=== PATIENT | male | born 1995 | race Caucasian/White ===

== ENCOUNTER → 2018-10-29 | Day surgery (SDC) | payer OTHER ==
[~2018-10-29] VITALS: Ht 172.7 cm; Wt 80.0 kg
[~2018-10-29] MED LIST: ACETAMINOPHEN 1000 MG/ISO-OSM 100 ML IV ONE; AMPICILLIN SODIUM 1 GM/VIAL ONE; ATOR10TA84 PO; CLON.2 PO; DEXAMETHASONE SOD PHOS 4 MG/ML VIAL IVP ONE; DOCU250C90 PO; GLYCOPYRROLATE 0.2 MG/ML VIAL IM ONE; KETAMINE HCL 50 MG/ML 10 ML VIAL IVP ONE; KETOROLAC TROMETHAMINE 60 MG/2 ML VIAL IM ONE; LACO100 PO; LIDOCAINE/PF 2% 5 ML VIAL INJ ONE; METF-960 PO; METO25 PO; MIDAZOLAM HCL 2 MG/2 ML VIAL IVP ONE; MIDAZOLAM HCL 5 MG/ML VIAL ONE; OLAN10TA3 PO; ONDANSETRON HCL 4 MG/2 ML VIAL IVP ONE; OXYMETAZOLINE HCL 0.05% 15 ML NASAL SPRAY NASAL ONE; PROPOFOL 1% 20 ML VIAL IVP ONE; RINGERS SOLUTION,LACTATED 1,000 ML IV ONE; SUCCINYLCHOLINE CHLORIDE 20 MG/ML 10 ML VIAL IVP ONE; TEMA15CA PO
[2018-10-29 08:02] LABS: BASOPHILS % (AUTO) 0.5 % (0.0-2.0); EOSINOPHILS % (AUTO) 0.2 % (1.0-6.0); HEMATOCRIT 42.9 % (41-53); HEMOGLOBIN 14.2 g/dL (13.5-17.5); LYMPHOCYTES # (AUTO) 2.6 K/uL (1.0-4.8); LYMPHOCYTES % (AUTO) 35.7 % (22.0-44.0); MEAN CORPUSCULAR HEMOGLOBIN 26.7 pg (26.0-34.0); MEAN CORPUSCULAR HGB CONC 33.2 G/dL (31.0-37.0); MEAN CORPUSCULAR VOLUME 80 fL (80-100); MONOCYTES # (AUTO) 0.5 K/uL (0.1-1.0); MONOCYTES % (AUTO) 6.8 % (2.0-9.0); NEUTROPHILS # (AUTO) 4.1 K/uL (1.8-7.7); NEUTROPHILS % (AUTO) 56.8 % (40.0-70.0); PLATELET COUNT (AUTO) 200 K/uL (150-450); RED BLOOD CELL COUNT(AUTO) 5.34 MIL/uL (4.50-5.90); RED CELL DISTRIBUTION WIDTH 14.4 % (11.5-14.5)
[2018-10-29 08:10] LABS: INR 1.1 (0.9-1.1); PROTHROMBIN TIME 11.4 SEC (9.4-11.6)
[2018-10-29 08:12] LABS: ANION GAP 10 mmol/L (8-16); CALCIUM, TOTAL 9.2 mg/dL (8.8-10.5); CARBON DIOXIDE 30 mmol/L (22-29); CHLORIDE 102 mmol/L (98-107); CREATININE 0.83 mg/dL (0.60-1.30); GLOMERULAR FILTR. RATE CALC > 60 mL/min (>60); GLUCOSE,RANDOM 293 mg/dL (70-110); POTASSIUM 3.8 mmol/L (3.5-5.1); SODIUM SERUM 142 mmol/L (136-145); UREA NITROGEN, BLOOD 11 mg/dL (7-18)
[2018-10-29 08:19] LABS: ALANINE AMINOTRANSFERASE 56 U/L (12-78); ALBUMIN 3.6 g/dL (3.4-5.0); ALKALINE PHOSPHATASE 75 U/L (46-116); ASPARTATE AMINOTRANSFERASE 35 U/L (15-37); BILIRUBIN,TOTAL 0.3 mg/dL (0.1-1.0); TOTAL PROTEIN, SERUM 7.8 g/dL (6.4-8.2)
[2018-10-29 09:00] LABS: GLUCOMETER DEV NAME(LOC) SDS.; GLUCOSE,POINT OF CARE 278 MG/DL (70-110)
== END | disposition home or self-care (01) ==
LOC: SURGERY 06:39
PROVIDERS: ATTEND Dentist General Practice
DX: K05.30 Chronic periodontitis, unspecified (principal); K03.89 Other specified diseases of hard tissues of teeth; E11.9 Type 2 diabetes mellitus without complications; I10 Essential (primary) hypertension; F84.0 Autistic disorder; G47.00 Insomnia, unspecified; E78.00 Pure hypercholesterolemia, unspecified; G40.909 Epilepsy, unspecified, not intractable, without status epilepticus; E78.5 Hyperlipidemia, unspecified; Z98.42 Cataract extraction status, left eye; Z98.41 Cataract extraction status, right eye; Z79.899 Other long term (current) drug therapy; Z98.890 Other specified postprocedural states
CPT/HCPCS: 36415; 41899; 71045; 80053; 82962; 85025; 85610; 85730; 93005; J0131; J0290; J0330; J1100; J1885; J2250 ×2; J2405; J2704; J3490 ×3; J7120